=== PATIENT | female | born 1985 | race Caucasian/White ===

== ENCOUNTER → 2019-02-01 | Outpatient (CLI) | payer OTHER, BC ==
[~2019-02-01] MED LIST: DIATRIZOATE MEGL/DIATRIZOA SOD 30 ML BTL PO ONE; IOPAMIDOL 370 MG/ML 200 ML INFUS..BTL INJ ONE; SODIUM CHLORIDE 0.9% 50ML 50 ML ONE
--- NOTE | 2019-02-01 16:44 | Diagnostic Imaging Report ---
EXAM: CT Abdomen and Pelvis with contrast INDICATION: Left lower quadrant abdominal pain. COMPARISON: None. TECHNIQUE: Abdomen and pelvis were scanned utilizing a multidetector helical scanner from the lung base to the pubic symphysis after administration of IV contrast. Coronal and sagittal reformations were obtained. Routine protocol was performed. Scan was performed when during portal venous phase. IV CONTRAST: 100 cc of Isovue 370. ORAL CONTRAST: Gastrografin COMPLICATIONS: None RADIATION DOSE: Total DLP: 213.6 mGy*cm Dose modulation, iterative reconstruction, and/or weight based adjustment of the mA/kV was utilized to reduce the radiation dose to as low as reasonably achievable. FINDINGS: LINES and TUBES: None. LOWER THORAX: Unremarkable HEPATOBILIARY: Diffuse mild hepatic steatosis. No evidence of focal lesion. No biliary ductal dilation. GALLBLADDER: No radio-opaque stones or sludge. No wall thickening. Surgical clips are present adjacent to the gallbladder. SPLEEN: No splenomegaly. PANCREAS: No focal masses or ductal dilatation. ADRENALS: No adrenal nodules KIDNEYS/URETERS: Kidneys enhance symmetrically. No evidence of hydronephrosis, solid mass, or stone. GI TRACT: Status post subtotal colectomy. There is anastomosis between the distal small bowel and the distal sigmoid colon / proximal rectum in the left lower quadrant. The distal sigmoid colon is dilated, measuring up to 6.4 cm with fecal contents and air. There is no evidence of proximal bowel dilatation. No evidence of wall thickening. The appendix is reportedly surgically absent. PELVIC ORGANS/BLADDER: IUD is present. LYMPH NODES: No lymphadenopathy. VESSELS: Unremarkable. PERITONEUM / RETROPERITONEUM: No free air or fluid. BONES AND SOFT TISSUES: Partially seen bilateral breast implants. CONCLUSION: Status post subtotal colectomy. Dilated fecal filled sigmoid colonic loop near the small bowel anastomosis in the pelvis. This could represent fecal impaction. No evidence of bowel obstruction. Diffuse mild hepatic steatosis. Signed by: Dr. Dimas Valero MD on 02/01/2019 4:40 PM
== END ==
LOC: CT 13:47
PROVIDERS: ATTEND Internal Medicine Gastroenterology
DX: R10.32 Left lower quadrant pain (principal)
CPT/HCPCS: 74177; 81025; Q9967